=== PATIENT | male | born 1970 | race Caucasian/White ===

== ENCOUNTER 2019-01-03 15:29 | Inpatient (IN) | payer OTHER, MEDICAID ==
[~2019-01-03] VITALS: Ht 160 cm; Wt 92.1 kg
[2019-01-03] MEDS ORDERED: EPINEPHRINE SYRINGE 0.1 MG/ML, 10ML ONE (15:30)
[2019-01-03] MEDS ORDERED: SODIUM BICARB 8.4%, 50ML SYRINGE ONE ×2 (15:30→19:41)
[2019-01-03] MEDS ORDERED: ATROPINE SYRINGE 0.1 MG/ML, 10ML ONE (15:30)
[2019-01-03] MEDS ORDERED: PROPOFOL 10 MG/ML, 20ML ONE (15:32)
[2019-01-03] MEDS ORDERED: VECURONIUM 10 MG ONE (15:32)
[2019-01-03] MEDS ORDERED: ETOMIDATE 20 MG/10 ML ONE (15:32)
[2019-01-03] MEDS ORDERED: PROPOFOL 10 MG/ML, 100ML IV ONE (15:32)
[2019-01-03] MEDS ORDERED: SODIUM CHLORIDE FLUSH 10ML SYR IVF ONE (16:00)
[2019-01-03] MEDS ORDERED: SODIUM CHLORIDE 0.9% 1,000ML IVBOLUS ONE ×2 (16:00→19:30)
--- NOTE | 2019-01-03 16:00 | NUR ---
THIS IS A 48 YO MALE BIB [facility] FROM HOME WHERE PT WAS SEEN SITTING ON PORCH BY NEIGHBOR WHO THOUGHT PT "DIDN'T LOOK SO GOOD". PT HAS SLURRED, MUMBLED SPEECH. PT WILL ALTERNATE BETWEEN ANSWERING ALL QUESTIONS APPROPRIATELY AND NOT ANSWERING ANY QUESTIONS. PT RESTLESS AND AGITATED, LEANING OVER BED. PT STATES "I'M SO WEAK, I'M SO WEAK'. TONGUE DRY. PT DENIES ANY MEDICAL HX APART FROM [place] IN 2015. PT DENIES TAKING ANY MEDICATION. PT CYANOTIC FROM CLAVICLES TO STOP.
--- NOTE | 2019-01-03 16:00 | NUR ---
PT MOVED TO TR04. REPORT TO RAMON BRINK WHO ASSUMED CARE OF PT.
[2019-01-03 16:10] LABS: PH, VENOUS 7.203 pH (7.320-7.420)
[2019-01-03] MEDS ORDERED: PROPOFOL 0 ML IV ONE (16:10)
[2019-01-03 16:11] LABS: BASOPHILS # (AUTO) 0.03 x10^3/uL (0-0.1); BASOPHILS % (AUTO) 0 % (0-1); EOSINOPHILS # (AUTO) 0.02 x10^3/uL (0-0.4); EOSINOPHILS % (AUTO) 0 % (1-7); LYMPHOCYTES # (AUTO) 1.17 x10^3/uL (1-3.4); LYMPHOCYTES % (AUTO) 11 % (22-44); MD NO; MEAN CORPUSCULAR HEMOGLOBIN 28.4 pg (27.5-34.5); MEAN CORPUSCULAR HGB CONC 31.7 g/dL (33.2-36.2); MEAN CORPUSCULAR VOLUME 89.5 fL (81-97); MEAN PLATELET VOLUME 10.3 fL (7.4-10.4); MONOCYTES # (AUTO) 0.77 x10^3/uL (0.2-0.8); MONOCYTES % (AUTO) 7 % (2-9); NEUTROPHILS # (AUTO) 8.96 x10^3/uL (1.8-6.8); NEUTROPHILS % (AUTO) 82 % (42-75); PLATELET COUNT 112 x10^3/uL (130-400); RED BLOOD COUNT 6.32 x10^6/uL (4.38-5.82); RED CELL DISTRIBUTION WIDTH 16.6 % (9.4-14.8)
--- NOTE | 2019-01-03 16:11 | NUR ---
1555 PT WITH MUMBLED SPEECH, LIPS CYANOTIC, EXTREMITIES COOL. UNABLE TO PALPATE RADIAL PULSES. PT MOVED TO TR04. DR HERBERT AT BEDSIDE FOR INTUBATION. 1607 PT GIVEN 20MG ETOMIDATE, 1608 GIVEN 7MG VEVURONIUM. 1609 PT INTUBATED WITH 8.0 ETT 24 AT LIP. PLACEMENT WITH AUSCULTATION AND ET MONITORING. PT SB PER MONITOR. BP DECREASED 64/40. 1L NS FLUIDS INFUSING. 1617 16F OG PLACED. 1620 HR 55 57/20 16 99% ON AC 14 550 100% [address] CARRERO AT BEDSIDE AWARE OF V/S
[2019-01-03 16:19] LABS: INTERNATIONAL NORMALIZED RATIO 1.34 (0.93-1.1); PROTHROMBIN TIME 13.9 Seconds (9.6-11.5)
--- NOTE | 2019-01-03 16:23 | NUR ---
RECEIVED CALL FROM LAB, RONAN HEMOLYSED. POTASSIUM 7.7. DR CARRERO AWARE. LABS TO BE REDRAWN. 1621 1 AMP BICAB ADM PER V/O OF DR CARRERO.
[2019-01-03] MEDS ORDERED: SODIUM BICARBONATE 1 MEQ/ML, 50ML VIAL IVPush ONE (16:30)
[2019-01-03] MEDS ORDERED: ONDANSETRON 2MG/ML, 2ML IVPush PRN (16:30)
[2019-01-03] MEDS ORDERED: VASOPRESSIN 100 UNIT in SODIUM CHLORIDE 0.9% 495 ML IV PRN (16:30)
[2019-01-03] MEDS ORDERED: MIDAZOLAM HCL 50 MG in SODIUM CHLORIDE 0.9% 240 ML IV PRN (16:30)
[2019-01-03] MEDS ORDERED: HYDROCORTISONE 100 MG INJ. IVPush SCH (16:30)
[2019-01-03] MEDS ORDERED: HEPARIN 5,000 UNITS/ML, 1ML SQ SCH (16:30)
[2019-01-03] MEDS ORDERED: BISACODYL 10 MG SUPP PR PRN ×2 (16:30→19:30)
[2019-01-03] MEDS ORDERED: VANCOMYCIN PER PHARMACY MC PRN (16:30)
[2019-01-03] MEDS ORDERED: ALBUMIN HUMAN 25% 100 ML IV ONE (16:30)
[2019-01-03] MEDS ORDERED: LORazepam 2 MG/ML, 1ML IVPush PRN (16:30)
[2019-01-03] MEDS ORDERED: ETOMIDATE 40 MG/20 ML IVPush ONE (16:30)
[2019-01-03] MEDS ORDERED: VECURONIUM 10 MG IVPush ONE (16:30)
[2019-01-03] MEDS ORDERED: ACETAMINOPHEN 325 MG TABLET PO PRN (16:30)
[2019-01-03] MEDS ORDERED: OXYcodone IR 5MG TABLET PO PRN (16:30)
--- NOTE | 2019-01-03 16:31 | NUR ---
DR HERBERT AT BEDSIDE. PT HR DECREASED TO 40, BP 66/23. 2 L NS INFUSING.
--- NOTE | 2019-01-03 16:36 | NUR ---
PT WITH HR 39, 1/2 MG ATROPINE GIVEN, FAINT TO NON EXISTENT PULSE.
--- NOTE | 2019-01-03 16:37 | NUR ---
CODE BLUE INITIATED. SEE CPR DATA SHEET
[2019-01-03] MEDS ORDERED: CODE BLUE RESPONSE XX ONE (16:40)
--- NOTE | 2019-01-03 16:49 | NUR ---
DR HERBERT AT BEDSIDE PLACING CENTRAL LINE.
[2019-01-03] MEDS ORDERED: PIPERACILLIN/TAZO/PMX 3.375GM 50 ML IV SCH (17:00)
[2019-01-03] MEDS ORDERED: NOREPINEPHRINE 4 MG in SODIUM CHLORIDE 0.9% 246 ML IV PRN ×2 (17:00→19:16)
[2019-01-03 17:19] LABS: FREE T4 (FREE THYROXINE) 1.04 ng/dL (0.76-1.46)
[2019-01-03 17:23] LABS: ANION GAP 10 mmol/L (5-15); CALCIUM 6.5 mg/dL (8.5-10.1); CHLORIDE 114 mmol/L (98-107)
--- NOTE | 2019-01-03 17:27 | NUR ---
PT TO GO TO CT ON MONITOR WITH PORTABLE VENT WITH RN AND RN
[2019-01-03 17:28] LABS: ALANINE AMINOTRANSFERASE 49 U/L (12-78); ALKALINE PHOSPHATASE 61 U/L (45-117); BILIRUBIN,TOTAL 1.6 mg/dL (0.2-1.0); CREATININE 1.75 mg/dL (0.7-1.3); TOTAL PROTEIN 4.6 g/dL (6.4-8.2); TROPONIN I 0.031 ng/mL (0.000-0.045)
[2019-01-03 17:59] LABS: HEMOGLOBIN A1C 10.4 % (4.2-6.3)
--- NOTE | 2019-01-03 18:05 | NUR ---
PT RETURNED TO ROOM FROM CT Addendum: 01/03/19 at [address] CORINNA NOTED AFTER CT SCAN (PT LAYING FLAT) PT HEAD BECOMES OBRIEN/BLUE. BECOMES PALE AFTER TRANSFER TO [facility] AND SITTING UP
[2019-01-03] MEDS ORDERED: OMNIPAQUE 350 MG/ML, 100ML BOTTLE ONE (18:11)
--- NOTE | 2019-01-03 18:18 | NUR ---
REPORT CALLED TO PRATIBHA NAVARRO: POC DISCUSSED
[2019-01-03] MEDS ORDERED: ATROPINE 0.4 MG/ML, 1ML IVPush ONE (18:30)
[2019-01-03] MEDS ORDERED: PHARMACOKINETIC MONITORING MC PRN (19:00)
[2019-01-03] MEDS ORDERED: PHARMACOKINETIC CONSULTATION MC ONE (19:00)
[2019-01-03] MEDS ORDERED: FENTANYL PF 250 MCG in SODIUM CHLORIDE 0.9% 245 ML IV PRN (19:16)
[2019-01-03] MEDS ORDERED: SODIUM PHOSPHATE 20 MMOL in SODIUM CHLORIDE 0.9% 250 ML IVPB PRN (19:16)
[2019-01-03 19:28] LABS: ALANINE AMINOTRANSFERASE 194 U/L (12-78); ALBUMIN 2.6 g/dL (3.4-5.0); ANION GAP 8 mmol/L (5-15); CALCIUM 7.2 mg/dL (8.5-10.1); CHLORIDE 108 mmol/L (98-107); CREATININE 1.87 mg/dL (0.7-1.3)
[2019-01-03] MEDS ORDERED: FENTANYL PF 100 MCG/2ML IVPush PRN (19:30)
[2019-01-03] MEDS ORDERED: LORazepam 2 MG/ML, 1ML IV ONE (19:30)
[2019-01-03] MEDS ORDERED: SENNA 176 MG/5 ML ORAL SOL NG PRN (19:30)
[2019-01-03] MEDS: ARTIFICIAL TEARS OINT 3.5 GM EACHEYE SCH ×2 (19:30→21:39)
[2019-01-03] MEDS ORDERED: CALCIUM CHLORIDE 13.6 MEQ in DEXTROSE 5% 100 ML IVPB PRN (19:30)
[2019-01-03] MEDS ORDERED: PHARMACY MAY ADJ FOR RENAL FX MC SCH (19:30)
[2019-01-03] MEDS: KSCALE TO 4.0 IV SCH ×3 (19:30→21:43)
[2019-01-03] MEDS ORDERED: VECURONIUM 10 MG IVPush PRN (19:30)
[2019-01-03] MEDS: ALBUTEROL/IPRATROPIUM 2.5MG/0.5MG, 3 ML INLINE SCH ×2 (19:30→22:46)
[2019-01-03] MEDS ORDERED: SENNA/DOCUSATE TABLET NG PRN (19:30)
[2019-01-03] MEDS ORDERED: SODIUM CHLORIDE 0.9% 1,000ML IV SCH (19:30)
[2019-01-03] MEDS ORDERED: MAGNESIUM SULFATE 1 GM in SODIUM CHLORIDE 0.9% 50 ML IVPB PRN (19:30)
[2019-01-03] MEDS ORDERED: LIDOCAINE-MPF 1%, 2ML ENDO PRN (19:30)
[2019-01-03] MEDS ORDERED: LACTULOSE 20 GM/30 ML UDC NG PRN (19:30)
[2019-01-03 19:32] LABS: ALKALINE PHOSPHATASE 86 U/L (45-117); BILIRUBIN,TOTAL 3.9 mg/dL (0.2-1.0); TOTAL PROTEIN 5.7 g/dL (6.4-8.2)
[2019-01-03] MEDS ORDERED: INSULIN REGULAR 100 UNITS/ML, 3ML VIAL ONE (19:42)
[2019-01-03] MEDS: PIPERACILLIN/TAZO/PMX 3.375GM 50 ML IV SCH (19:56)
[2019-01-03] MEDS ORDERED: SODIUM BICARB 8.4%, 50ML SYRINGE IVPush ONE (20:00)
[2019-01-03] MEDS ORDERED: INSULIN REGULAR 100 UNITS/ML, 3ML VIAL IVPush ONE (20:00)
[2019-01-03] MEDS ORDERED: LORazepam 2 MG/ML, 1ML IVPush ONE (20:00)
[2019-01-03] MEDS ORDERED: DEXTROSE 50%, 50ML SYRINGE IVPush ONE (20:00)
[2019-01-03] MEDS: VANCOMYCIN 1,500 MG in SODIUM CHLORIDE 0.9% 250 ML IV SCH (20:08)
[2019-01-03] MEDS: BUSPIRONE 10 MG TABLET NG SCH ×2 (20:13→20:33)
[2019-01-03] MEDS: FAMOTIDINE 20 MG/2 ML IVPush SCH (20:13)
[2019-01-03] MEDS: HEPARIN 5,000 UNITS/ML, 1ML SQ SCH (20:13)
[2019-01-03] MEDS: SODIUM CHLORIDE 0.9% 1,000 ML IV SCH (20:16)
[2019-01-03] MEDS ORDERED: GLUCAGON 1 MG IM PRN (21:00)
[2019-01-03] MEDS ORDERED: FAMOTIDINE 20 MG/2 ML IVPush SCH (21:00)
[2019-01-03] MEDS ORDERED: DEXTROSE 50%, 50ML SYRINGE IVPush PRN (21:00)
[2019-01-03] MEDS ORDERED: INSULIN LISPRO 100 UNITS/ML, PEN SQ-INSULIN SCH (21:00)
[2019-01-03] MEDS ORDERED: DEXTROSE 4 GM TAB.CHEW PO PRN (21:00)
[2019-01-03] MEDS ORDERED: INSULIN GLARGINE 100 UNITS/ML, PEN SQ-INSULIN SCH (21:00)
[2019-01-03 21:18] LABS: MICROSCOPIC INDICATED
[2019-01-03 21:27] LABS: AMPHETAMINE SCREEN, URINE Negative (Negative); BARBITURATE SCREEN, URINE Negative (Negative); BENZODIAZEPINE SCREEN, URINE Negative (Negative); CANNABINOID SCREEN, URINE Negative (Negative); COCAINE SCREEN, URINE Negative (Negative); METHADONE SCREEN, URINE Negative (Negative); OPIATE SCREEN, URINE Negative (Negative)
[2019-01-03 21:28] LABS: CULTURE INDICATED? NO
[2019-01-03 21:30] LABS: TROPONIN I 0.713 ng/mL (0.000-0.045)
[2019-01-03] MEDS: SODIUM CHLORIDE FLUSH 10ML SYR IVF SCH (21:38)
[2019-01-03] MEDS: INSULIN LISPRO 100 UNITS/ML, PEN SQ-INSULIN SCH (21:38)
[2019-01-04] MEDS: ALBUTEROL/IPRATROPIUM 2.5MG/0.5MG, 3 ML INLINE SCH ×6 (03:02→22:18)
[2019-01-04] MEDS ORDERED: NOREPINEPHRINE 1 MG/ML, 4ML ONE (03:39)
[2019-01-04] MEDS: HEPARIN 5,000 UNITS/ML, 1ML SQ SCH ×3 (03:45→20:23)
[2019-01-04] MEDS: PIPERACILLIN/TAZO/PMX 3.375GM 50 ML IV SCH ×3 (03:45→20:23)
[2019-01-04] MEDS: SODIUM CHLORIDE 0.9% 1,000 ML IV SCH (04:00)
[2019-01-04] MEDS: PROPOFOL 100 ML IV PRN ×3 (04:08→18:34)
[2019-01-04] MEDS: INSULIN LISPRO 100 UNITS/ML, PEN SQ-INSULIN SCH ×4 (04:09→20:29)
[2019-01-04 04:17] LABS: BASOPHILS # (AUTO) 0.07 x10^3/uL (0-0.1); BASOPHILS % (AUTO) 1 % (0-1); EOSINOPHILS # (AUTO) 0.01 x10^3/uL (0-0.4); EOSINOPHILS % (AUTO) 0 % (1-7); LYMPHOCYTES # (AUTO) 1.38 x10^3/uL (1-3.4); LYMPHOCYTES % (AUTO) 10 % (22-44); MD NO; MEAN CORPUSCULAR VOLUME 90.7 fL (81-97); MEAN PLATELET VOLUME 10.2 fL (7.4-10.4); MONOCYTES # (AUTO) 1.23 x10^3/uL (0.2-0.8); MONOCYTES % (AUTO) 9 % (2-9); NEUTROPHILS # (AUTO) 11.59 x10^3/uL (1.8-6.8); NEUTROPHILS % (AUTO) 81 % (42-75); PLATELET COUNT 153 x10^3/uL (130-400); RED BLOOD COUNT 5.98 x10^6/uL (4.38-5.82); RED CELL DISTRIBUTION WIDTH 16.3 % (9.4-14.8)
[2019-01-04 04:19] VITALS: BP 88/63
[2019-01-04 04:27] LABS: ALANINE AMINOTRANSFERASE 162 U/L (12-78); ALBUMIN 2.7 g/dL (3.4-5.0); ANION GAP 7 mmol/L (5-15); CALCIUM 7.1 mg/dL (8.5-10.1); CHLORIDE 112 mmol/L (98-107)
[2019-01-04 04:32] LABS: ALKALINE PHOSPHATASE 68 U/L (45-117); BILIRUBIN,TOTAL 1.7 mg/dL (0.2-1.0); CREATININE 1.96 mg/dL (0.7-1.3); TOTAL PROTEIN 5.6 g/dL (6.4-8.2)
[2019-01-04] MEDS ORDERED: MAGNESIUM SULFATE 1 GM in SODIUM CHLORIDE 0.9% 50 ML IV ONE (05:00)
[2019-01-04] MEDS: SODIUM BICARBONATE 8.4% 150 MEQ in DEXTROSE 5% 1,000 ML IV SCH ×3 (05:12→21:06)
[2019-01-04] MEDS ORDERED: NOREPINEPHRINE 8 MG in SODIUM CHLORIDE 0.9% 242 ML IV PRN (06:16)
[2019-01-04] MEDS ORDERED: MAGNESIUM SULFATE PMX 2GM/50ML 50 ML IV ONE (07:00)
[2019-01-04] MEDS: FAMOTIDINE 20 MG/2 ML IVPush SCH (08:27)
[2019-01-04] MEDS: SENNA/DOCUSATE TABLET PO SCH (08:27)
[2019-01-04] MEDS: SODIUM CHLORIDE FLUSH 10ML SYR IVF SCH ×2 (08:28→20:24)
[2019-01-04] MEDS: INSULIN GLARGINE 100 UNITS/ML, PEN SQ-INSULIN SCH ×3 (08:29→20:28)
[2019-01-04] MEDS ORDERED: MIDAZOLAM HCL 50 MG in SODIUM CHLORIDE 0.9% 240 ML IV PRN (09:30)
[2019-01-04] MEDS: LEVETIRACETAM 500 MG in SODIUM CHLORIDE 0.9% 100 ML IV SCH (15:28)
[2019-01-04 16:35] LABS: ANION GAP 6 mmol/L (5-15); CALCIUM 7.4 mg/dL (8.5-10.1); CHLORIDE 107 mmol/L (98-107); CREATININE 1.52 mg/dL (0.7-1.3)
[2019-01-04] MEDS ORDERED: POTASSIUM CHLORIDE 10% 40 MEQ/30 ML UDC PO ONE (17:00)
[2019-01-04] MEDS: VANCOMYCIN 1,500 MG in SODIUM CHLORIDE 0.9% 250 ML IV SCH (18:34)
[2019-01-04] MEDS: DOPAMINE/D5W PMX 250 ML IV PRN (20:49)
[2019-01-05] MEDS: PROPOFOL 100 ML IV PRN ×2 (00:30→05:52)
[2019-01-05] MEDS: morphine SULFATE 10 MG/ML, 1ML IVPush PRN (01:50)
[2019-01-05] MEDS: ALBUTEROL/IPRATROPIUM 2.5MG/0.5MG, 3 ML INLINE SCH ×3 (02:12→10:54)
[2019-01-05] MEDS: LEVETIRACETAM 500 MG in SODIUM CHLORIDE 0.9% 100 ML IV SCH ×2 (03:02→15:10)
[2019-01-05] MEDS: PIPERACILLIN/TAZO/PMX 3.375GM 50 ML IV SCH ×3 (03:23→19:59)
[2019-01-05 04:00] VITALS: BP 113/76
[2019-01-05] MEDS: HEPARIN 5,000 UNITS/ML, 1ML SQ SCH ×3 (04:02→20:00)
[2019-01-05] MEDS: SODIUM BICARBONATE 8.4% 150 MEQ in DEXTROSE 5% 1,000 ML IV SCH (04:02)
[2019-01-05] MEDS: INSULIN LISPRO 100 UNITS/ML, PEN SQ-INSULIN SCH ×4 (04:09→20:37)
[2019-01-05 04:19] LABS: BASOPHILS # (AUTO) 0.05 x10^3/uL (0-0.1); BASOPHILS % (AUTO) 0 % (0-1); EOSINOPHILS % (AUTO) 1 % (1-7); LYMPHOCYTES # (AUTO) 1.38 x10^3/uL (1-3.4); LYMPHOCYTES % (AUTO) 11 % (22-44); MD NO; MEAN CORPUSCULAR HEMOGLOBIN 28.9 pg (27.5-34.5); MEAN CORPUSCULAR HGB CONC 31.9 g/dL (33.2-36.2); MEAN CORPUSCULAR VOLUME 90.4 fL (81-97); MEAN PLATELET VOLUME 8.9 fL (7.4-10.4); MONOCYTES # (AUTO) 0.69 x10^3/uL (0.2-0.8); MONOCYTES % (AUTO) 5 % (2-9); NEUTROPHILS # (AUTO) 10.49 x10^3/uL (1.8-6.8); NEUTROPHILS % (AUTO) 83 % (42-75); PLATELET COUNT 143 x10^3/uL (130-400); RED BLOOD COUNT 5.54 x10^6/uL (4.38-5.82); RED CELL DISTRIBUTION WIDTH 16.5 % (9.4-14.8)
[2019-01-05 04:29] LABS: ANION GAP 4 mmol/L (5-15); CALCIUM 6.9 mg/dL (8.5-10.1); CHLORIDE 106 mmol/L (98-107); CREATININE 1.19 mg/dL (0.7-1.3)
[2019-01-05] MEDS ORDERED: FAMOTIDINE 20 MG/2 ML IVPush SCH ×2 (09:00→21:00)
[2019-01-05] MEDS: SODIUM CHLORIDE FLUSH 10ML SYR IVF SCH ×2 (09:09→19:59)
[2019-01-05] MEDS: SENNA/DOCUSATE TABLET PO SCH (09:09)
[2019-01-05] MEDS: ASPIRIN 81 MG TABLET CHEW PO SCH (09:09)
[2019-01-05] MEDS: INSULIN GLARGINE 100 UNITS/ML, PEN SQ-INSULIN SCH ×2 (09:10→20:56)
--- NOTE | 2019-01-05 09:44 | NUR ---
TF GOAL: w/ propofol: PROMOTE @ 60ml/hr off propofol: 70ml/hr
[2019-01-05] MEDS ORDERED: POTASSIUM CHLORIDE PMX 100 ML IV ONE (11:30)
[2019-01-05] MEDS ORDERED: FUROSEMIDE 20 MG/2 ML IV ONE (11:30)
[2019-01-05] MEDS: VANCOMYCIN 1,500 MG in SODIUM CHLORIDE 0.9% 250 ML IV SCH (20:34)
[2019-01-06] MEDS: DOPAMINE/D5W PMX 250 ML IV PRN (00:22)
[2019-01-06] MEDS: INSULIN LISPRO 100 UNITS/ML, PEN SQ-INSULIN SCH ×5 (03:25→20:47)
[2019-01-06] MEDS: LEVETIRACETAM 500 MG in SODIUM CHLORIDE 0.9% 100 ML IV SCH ×2 (03:27→14:52)
[2019-01-06] MEDS: PIPERACILLIN/TAZO/PMX 3.375GM 50 ML IV SCH (03:27)
[2019-01-06 04:00] VITALS: BP 100/64
[2019-01-06] MEDS: HEPARIN 5,000 UNITS/ML, 1ML SQ SCH ×3 (04:13→20:00)
[2019-01-06 05:20] LABS: BASOPHILS # (AUTO) 0.02 x10^3/uL (0-0.1); BASOPHILS % (AUTO) 0 % (0-1); EOSINOPHILS # (AUTO) 0.05 x10^3/uL (0-0.4); EOSINOPHILS % (AUTO) 1 % (1-7); LYMPHOCYTES # (AUTO) 0.93 x10^3/uL (1-3.4); LYMPHOCYTES % (AUTO) 10 % (22-44); MD NO; MEAN CORPUSCULAR HEMOGLOBIN 28.9 pg (27.5-34.5); MEAN CORPUSCULAR HGB CONC 31.8 g/dL (33.2-36.2); MEAN PLATELET VOLUME 9.2 fL (7.4-10.4); MONOCYTES # (AUTO) 0.56 x10^3/uL (0.2-0.8); MONOCYTES % (AUTO) 6 % (2-9); NEUTROPHILS # (AUTO) 7.48 x10^3/uL (1.8-6.8); NEUTROPHILS % (AUTO) 83 % (42-75); PLATELET COUNT 117 x10^3/uL (130-400); RED BLOOD COUNT 5.42 x10^6/uL (4.38-5.82); RED CELL DISTRIBUTION WIDTH 16.4 % (9.4-14.8)
[2019-01-06 05:30] LABS: ALBUMIN 2.4 g/dL (3.4-5.0); ANION GAP 7 mmol/L (5-15); CALCIUM 7.7 mg/dL (8.5-10.1); CHLORIDE 103 mmol/L (98-107)
[2019-01-06 05:35] LABS: ALANINE AMINOTRANSFERASE 265 U/L (12-78); ALKALINE PHOSPHATASE 83 U/L (45-117); BILIRUBIN, DIRECT 1.9 mg/dL (0.1-0.2); BILIRUBIN,INDIRECT 1.2 mg/dL (0.0-2.0); BILIRUBIN,TOTAL 3.1 mg/dL (0.2-1.0); CREATININE 0.96 mg/dL (0.7-1.3); TOTAL PROTEIN 5.6 g/dL (6.4-8.2)
[2019-01-06] MEDS ORDERED: POTASSIUM CHLORIDE 20 MEQ TAB.ER.PRT PO ONE (07:30)
[2019-01-06] MEDS ORDERED: CALCIUM CARBONATE 500 MG TAB.CHEW PO SCH (07:30)
[2019-01-06] MEDS ORDERED: CALCIUM CHLORIDE 13.6 MEQ in SODIUM CHLORIDE 0.9% 100 ML IV ONE (07:30)
[2019-01-06] MEDS ORDERED: MAGNESIUM SULFATE PMX 2GM/50ML 50 ML IV ONE (07:30)
[2019-01-06] MEDS: SENNA/DOCUSATE TABLET PO SCH (10:07)
[2019-01-06] MEDS: SODIUM CHLORIDE FLUSH 10ML SYR IVF SCH ×2 (10:07→20:07)
[2019-01-06] MEDS: ASPIRIN 81 MG TABLET CHEW PO SCH (10:07)
[2019-01-06] MEDS: CALCIUM CARBONATE 500 MG TAB.CHEW PO SCH ×3 (11:13→20:46)
[2019-01-06 13:07] VITALS: BP 100/69
[2019-01-06] MEDS: CEFTRIAXONE PMX 2GM/50ML 50 ML IV SCH (15:53)
[2019-01-06 18:51] VITALS: BP 104/75
[2019-01-07] VITALS (7 sets, daily range): BP systolic 105–127; BP diastolic 76–91
[2019-01-07] MEDS: HEPARIN 5,000 UNITS/ML, 1ML SQ SCH ×3 (03:24→19:44)
[2019-01-07] MEDS: LEVETIRACETAM 500 MG in SODIUM CHLORIDE 0.9% 100 ML IV SCH ×2 (03:24→20:23)
[2019-01-07] MEDS: CALCIUM CARBONATE 500 MG TAB.CHEW PO SCH ×2 (06:00→11:00)
[2019-01-07] MEDS: INSULIN LISPRO 100 UNITS/ML, PEN SQ-INSULIN SCH ×4 (07:00→20:23)
[2019-01-07] MEDS: SODIUM CHLORIDE FLUSH 10ML SYR IVF SCH ×2 (09:00→19:46)
[2019-01-07] MEDS: ASPIRIN 81 MG TABLET CHEW PO SCH (09:00)
[2019-01-07] MEDS: SENNA/DOCUSATE TABLET PO SCH (09:00)
[2019-01-07] MEDS ORDERED: VANCOMYCIN PER PHARMACY MC PRN (09:30)
[2019-01-07] MEDS ORDERED: VANCOMYCIN PMX 1GM/200ML 200 ML IV ONE (09:30)
[2019-01-07] MEDS: VANCOMYCIN 1,800 MG in SODIUM CHLORIDE 0.9% 250 ML IV SCH (11:33)
[2019-01-07] MEDS ORDERED: REGADENOSON 0.4 MG/5 ML SYRINGE ONE (12:55)
[2019-01-07] MEDS: CEFTRIAXONE PMX 2GM/50ML 50 ML IV SCH (15:36)
[2019-01-07] MEDS ORDERED: GADOTERATE 10 MMOL/20 ML SYR ONE (17:44)
[2019-01-08 00:40] VITALS: BP 115/78
[2019-01-08] MEDS: HEPARIN 5,000 UNITS/ML, 1ML SQ SCH ×3 (03:02→20:00)
[2019-01-08] MEDS: INSULIN LISPRO 100 UNITS/ML, PEN SQ-INSULIN SCH ×4 (07:00→20:54)
[2019-01-08 07:59] VITALS: BP 134/84
[2019-01-08] MEDS: SODIUM CHLORIDE FLUSH 10ML SYR IVF SCH ×2 (09:00→20:02)
[2019-01-08] MEDS: SENNA/DOCUSATE TABLET PO SCH (09:19)
[2019-01-08] MEDS: LEVETIRACETAM 500 MG in SODIUM CHLORIDE 0.9% 100 ML IV SCH ×2 (09:19→20:58)
[2019-01-08] MEDS: ASPIRIN 81 MG TABLET CHEW PO SCH (09:19)
[2019-01-08 09:52] LABS: BASOPHILS # (AUTO) 0.06 x10^3/uL (0-0.1); BASOPHILS % (AUTO) 1 % (0-1); EOSINOPHILS # (AUTO) 0.17 x10^3/uL (0-0.4); EOSINOPHILS % (AUTO) 2 % (1-7); LYMPHOCYTES # (AUTO) 1.55 x10^3/uL (1-3.4); LYMPHOCYTES % (AUTO) 18 % (22-44); MD NO; MEAN CORPUSCULAR HEMOGLOBIN 28.7 pg (27.5-34.5); MEAN CORPUSCULAR HGB CONC 32.5 g/dL (33.2-36.2); MEAN CORPUSCULAR VOLUME 88.3 fL (81-97); MEAN PLATELET VOLUME 9.6 fL (7.4-10.4); MONOCYTES # (AUTO) 1.11 x10^3/uL (0.2-0.8); MONOCYTES % (AUTO) 13 % (2-9); NEUTROPHILS # (AUTO) 5.81 x10^3/uL (1.8-6.8); NEUTROPHILS % (AUTO) 67 % (42-75); PLATELET COUNT 137 x10^3/uL (130-400); RED BLOOD COUNT 5.78 x10^6/uL (4.38-5.82); RED CELL DISTRIBUTION WIDTH 16.6 % (9.4-14.8)
[2019-01-08 10:06] LABS: ALANINE AMINOTRANSFERASE 175 U/L (12-78); ALBUMIN 2.7 g/dL (3.4-5.0); ANION GAP 6 mmol/L (5-15); CALCIUM 8.3 mg/dL (8.5-10.1); CHLORIDE 106 mmol/L (98-107); CREATININE 0.88 mg/dL (0.7-1.3)
[2019-01-08 10:10] LABS: ALKALINE PHOSPHATASE 131 U/L (45-117); BILIRUBIN,TOTAL 1.3 mg/dL (0.2-1.0); TOTAL PROTEIN 6.4 g/dL (6.4-8.2)
[2019-01-08] MEDS: VANCOMYCIN 1,800 MG in SODIUM CHLORIDE 0.9% 250 ML IV SCH (11:43)
[2019-01-08 14:02] VITALS: BP 131/96
[2019-01-08] MEDS ORDERED: ERGOCALCIFEROL 50,000 UNIT CAPSULE PO SCH (14:30)
[2019-01-08] MEDS: CEFTRIAXONE PMX 2GM/50ML 50 ML IV SCH (15:52)
[2019-01-08] MEDS: SIMETHICONE 125 MG CHEW TAB PO PRN (18:28)
[2019-01-08 19:01] VITALS: BP 138/98
[2019-01-08] MEDS: POLYETHYLENE GLYCOL 17 GM PACKET PO PRN (21:21)
[2019-01-09 00:12] VITALS: BP 122/89
[2019-01-09] MEDS: HEPARIN 5,000 UNITS/ML, 1ML SQ SCH ×3 (03:32→20:02)
[2019-01-09] MEDS: METOPROLOL SUCCINATE 25 MG TAB.ER.24H PO SCH (05:53)
[2019-01-09] MEDS: INSULIN LISPRO 100 UNITS/ML, PEN SQ-INSULIN SCH ×4 (07:40→20:06)
[2019-01-09 07:44] VITALS: BP 138/94
[2019-01-09] MEDS: LEVETIRACETAM 500 MG in SODIUM CHLORIDE 0.9% 100 ML IV SCH ×2 (08:08→20:02)
[2019-01-09] MEDS: LOSARTAN 25MG TABLET PO SCH (08:09)
[2019-01-09] MEDS: SODIUM CHLORIDE FLUSH 10ML SYR IVF SCH ×2 (08:09→21:39)
[2019-01-09] MEDS: SENNA/DOCUSATE TABLET PO SCH (08:09)
[2019-01-09] MEDS: ASPIRIN 81 MG TABLET CHEW PO SCH (08:09)
[2019-01-09] MEDS: VANCOMYCIN 1,800 MG in SODIUM CHLORIDE 0.9% 250 ML IV SCH (11:31)
[2019-01-09 13:49] VITALS: BP 123/70
[2019-01-09 14:47] VITALS: BP 124/88
[2019-01-09] MEDS: SIMETHICONE 125 MG CHEW TAB PO PRN (15:24)
[2019-01-09] MEDS: POLYETHYLENE GLYCOL 17 GM PACKET PO PRN (17:28)
[2019-01-09] MEDS: CEFTRIAXONE PMX 2GM/50ML 50 ML IV SCH (19:31)
[2019-01-09 19:41] VITALS: BP 136/99
[2019-01-10 04:07] VITALS: BP 145/93
[2019-01-10] MEDS: HEPARIN 5,000 UNITS/ML, 1ML SQ SCH ×2 (04:07→11:51)
[2019-01-10 05:46] LABS: BASOPHILS # (AUTO) 0.14 x10^3/uL (0-0.1); BASOPHILS % (AUTO) 1 % (0-1); EOSINOPHILS # (AUTO) 0.08 x10^3/uL (0-0.4); EOSINOPHILS % (AUTO) 1 % (1-7); LYMPHOCYTES # (AUTO) 1.18 x10^3/uL (1-3.4); LYMPHOCYTES % (AUTO) 12 % (22-44); MD NO; MEAN CORPUSCULAR HEMOGLOBIN 28.1 pg (27.5-34.5); MEAN CORPUSCULAR HGB CONC 31.7 g/dL (33.2-36.2); MEAN CORPUSCULAR VOLUME 88.8 fL (81-97); MEAN PLATELET VOLUME 9.6 fL (7.4-10.4); MONOCYTES % (AUTO) 11 % (2-9); NEUTROPHILS # (AUTO) 7.17 x10^3/uL (1.8-6.8); NEUTROPHILS % (AUTO) 75 % (42-75); PLATELET COUNT 150 x10^3/uL (130-400); RED BLOOD COUNT 6.18 x10^6/uL (4.38-5.82)
[2019-01-10 05:55] LABS: CHLORIDE 105 mmol/L (98-107)
[2019-01-10 06:05] LABS: ALANINE AMINOTRANSFERASE 135 U/L (12-78); ALBUMIN 3.1 g/dL (3.4-5.0); ALKALINE PHOSPHATASE 139 U/L (45-117); ANION GAP 9 mmol/L (5-15); BILIRUBIN,TOTAL 1.2 mg/dL (0.2-1.0); CALCIUM 8.6 mg/dL (8.5-10.1); CREATININE 0.91 mg/dL (0.7-1.3); TOTAL PROTEIN 7.4 g/dL (6.4-8.2)
[2019-01-10] MEDS: METOPROLOL SUCCINATE 25 MG TAB.ER.24H PO SCH (06:38)
[2019-01-10] MEDS: INSULIN LISPRO 100 UNITS/ML, PEN SQ-INSULIN SCH ×4 (07:00→20:20)
[2019-01-10] MEDS: LOSARTAN 25MG TABLET PO SCH (07:47)
[2019-01-10] MEDS: SENNA/DOCUSATE TABLET PO SCH (07:47)
[2019-01-10] MEDS: ASPIRIN 81 MG TABLET CHEW PO SCH (07:47)
[2019-01-10] MEDS: SODIUM CHLORIDE FLUSH 10ML SYR IVF SCH ×2 (07:47→20:14)
[2019-01-10] MEDS: LEVETIRACETAM 500 MG in SODIUM CHLORIDE 0.9% 100 ML IV SCH (07:47)
[2019-01-10 09:58] VITALS: BP 123/93
[2019-01-10 15:59] VITALS: BP 129/90
[2019-01-10] MEDS: SIMETHICONE 125 MG CHEW TAB PO PRN (16:27)
[2019-01-10] MEDS: LACTOBACILLUS CHEW TABLET PO SCH ×2 (16:27→20:55)
[2019-01-10 19:33] VITALS: BP 132/80
[2019-01-10] MEDS: CEFTRIAXONE PMX 2GM/50ML 50 ML IV SCH (19:43)
[2019-01-10] MEDS: ENOXAPARIN 40 MG/0.4 ML SQ SCH (20:15)
[2019-01-10] MEDS: LEVETIRACETAM 500 MG TABLET PO SCH (20:55)
[2019-01-10 20:56] VITALS: BP 143/99
[2019-01-11 03:49] VITALS: BP 144/105
[2019-01-11 04:00] LABS: BASOPHILS # (AUTO) 0.05 x10^3/uL (0-0.1); BASOPHILS % (AUTO) 1 % (0-1); EOSINOPHILS # (AUTO) 0.11 x10^3/uL (0-0.4); EOSINOPHILS % (AUTO) 1 % (1-7); LYMPHOCYTES # (AUTO) 1.46 x10^3/uL (1-3.4); LYMPHOCYTES % (AUTO) 17 % (22-44); MD NO; MEAN CORPUSCULAR HEMOGLOBIN 28.6 pg (27.5-34.5); MEAN CORPUSCULAR VOLUME 89.3 fL (81-97); MEAN PLATELET VOLUME 9.9 fL (7.4-10.4); MONOCYTES # (AUTO) 0.99 x10^3/uL (0.2-0.8); MONOCYTES % (AUTO) 12 % (2-9); NEUTROPHILS # (AUTO) 5.98 x10^3/uL (1.8-6.8); NEUTROPHILS % (AUTO) 70 % (42-75); PLATELET COUNT 172 x10^3/uL (130-400); RED BLOOD COUNT 5.88 x10^6/uL (4.38-5.82); RED CELL DISTRIBUTION WIDTH 16.6 % (9.4-14.8)
[2019-01-11 04:04] LABS: % IRON SATURATION 14 % (20-55); ALANINE AMINOTRANSFERASE 104 U/L (12-78); ALBUMIN 2.9 g/dL (3.4-5.0); ANION GAP 7 mmol/L (5-15); CALCIUM 8.5 mg/dL (8.5-10.1); CHLORIDE 106 mmol/L (98-107); CREATININE 0.96 mg/dL (0.7-1.3); IRON LEVEL 44 mcg/dL (65-175); TOTAL IRON BINDING CAPACITY 307 mcg/dL (250-450)
[2019-01-11 04:07] LABS: ALKALINE PHOSPHATASE 120 U/L (45-117); BILIRUBIN,TOTAL 1.1 mg/dL (0.2-1.0); CREATINE KINASE, TOTAL 106 U/L (39-308); TOTAL PROTEIN 6.8 g/dL (6.4-8.2)
[2019-01-11] MEDS: METOPROLOL SUCCINATE 25 MG TAB.ER.24H PO SCH (06:11)
[2019-01-11 06:42] VITALS: BP 134/90
[2019-01-11] MEDS: ASPIRIN 81 MG TABLET CHEW PO SCH (07:58)
[2019-01-11] MEDS: LOSARTAN 25MG TABLET PO SCH (07:58)
[2019-01-11] MEDS: INSULIN LISPRO 100 UNITS/ML, PEN SQ-INSULIN SCH ×4 (07:58→20:28)
[2019-01-11] MEDS: SENNA/DOCUSATE TABLET PO SCH (07:58)
[2019-01-11] MEDS: LEVETIRACETAM 500 MG TABLET PO SCH ×2 (07:58→20:28)
[2019-01-11] MEDS: LACTOBACILLUS CHEW TABLET PO SCH ×3 (07:58→20:28)
[2019-01-11] MEDS: SODIUM CHLORIDE FLUSH 10ML SYR IVF SCH ×2 (07:59→20:28)
[2019-01-11] MEDS ORDERED: ENOX40SY4 SQ (09:31)
[2019-01-11] MEDS ORDERED: ASPI-515 PO (09:31)
[2019-01-11] MEDS ORDERED: INSU100I11 SQ-INSULIN (09:31)
[2019-01-11] MEDS ORDERED: ERGO500017 PO (09:31)
[2019-01-11] MEDS ORDERED: BISA10SU4 PR ×2 (09:31)
[2019-01-11] MEDS ORDERED: CEFT2FRO2 IV (09:31)
[2019-01-11] MEDS ORDERED: LACT20SO13 NG (09:31)
[2019-01-11] MEDS ORDERED: POLY17PO5 PO (09:31)
[2019-01-11] MEDS ORDERED: SENN-193 PO (09:31)
[2019-01-11] MEDS ORDERED: ACET325T26 PO (09:31)
[2019-01-11] MEDS ORDERED: ACID1TAB7 PO (09:31)
[2019-01-11] MEDS ORDERED: METO25TA91 PO (09:31)
[2019-01-11] MEDS ORDERED: LOSA25TA25 PO (09:31)
[2019-01-11] MEDS ORDERED: LEVE500T53 PO (09:31)
[2019-01-11] MEDS ORDERED: CLOP75TA PO (09:47)
[2019-01-11 12:36] VITALS: BP 139/94
[2019-01-11 19:00] VITALS: BP 123/87
[2019-01-11] MEDS: CEFTRIAXONE PMX 2GM/50ML 50 ML IV SCH (20:27)
[2019-01-11] MEDS: ENOXAPARIN 40 MG/0.4 ML SQ SCH (20:28)
[2019-01-12 03:59] VITALS: BP 127/93
[2019-01-12] MEDS: METOPROLOL SUCCINATE 25 MG TAB.ER.24H PO SCH (06:10)
[2019-01-12] MEDS ORDERED: FLU VACC QS2019-20 36MOS UP/PF 0.5 ML IM-VACC ONE (06:30)
[2019-01-12] MEDS: INSULIN LISPRO 100 UNITS/ML, PEN SQ-INSULIN SCH ×4 (07:00→21:00)
[2019-01-12 07:15] VITALS: BP 131/90
[2019-01-12] MEDS: CLOPIDOGREL 75 MG TABLET PO SCH (07:58)
[2019-01-12] MEDS: LOSARTAN 25MG TABLET PO SCH (07:58)
[2019-01-12] MEDS: SENNA/DOCUSATE TABLET PO SCH (07:59)
[2019-01-12] MEDS: ASPIRIN 81 MG TABLET CHEW PO SCH (07:59)
[2019-01-12] MEDS: LACTOBACILLUS CHEW TABLET PO SCH ×3 (07:59→21:25)
[2019-01-12] MEDS: LEVETIRACETAM 500 MG TABLET PO SCH ×2 (07:59→21:25)
[2019-01-12] MEDS: SODIUM CHLORIDE FLUSH 10ML SYR IVF SCH ×2 (08:00→21:00)
[2019-01-12 13:08] VITALS: BP 125/81
[2019-01-12 19:09] VITALS: BP 133/83
[2019-01-12] MEDS: ENOXAPARIN 40 MG/0.4 ML SQ SCH (19:47)
[2019-01-12] MEDS: CEFTRIAXONE PMX 2GM/50ML 50 ML IV SCH (19:47)
[2019-01-13 00:29] VITALS: BP 100/76
[2019-01-13 05:36] VITALS: BP 129/91
[2019-01-13] MEDS: METOPROLOL SUCCINATE 25 MG TAB.ER.24H PO SCH (05:36)
[2019-01-13] MEDS: INSULIN LISPRO 100 UNITS/ML, PEN SQ-INSULIN SCH ×4 (07:00→20:06)
[2019-01-13 07:49] VITALS: BP 152/94
[2019-01-13] MEDS: CLOPIDOGREL 75 MG TABLET PO SCH (11:45)
[2019-01-13] MEDS: LACTOBACILLUS CHEW TABLET PO SCH ×3 (11:45→20:02)
[2019-01-13] MEDS: ASPIRIN 81 MG TABLET CHEW PO SCH (11:45)
[2019-01-13] MEDS: SODIUM CHLORIDE FLUSH 10ML SYR IVF SCH ×2 (11:46→19:34)
[2019-01-13] MEDS: SENNA/DOCUSATE TABLET PO SCH (11:46)
[2019-01-13] MEDS: LEVETIRACETAM 500 MG TABLET PO SCH ×2 (11:46→20:02)
[2019-01-13] MEDS: LOSARTAN 25MG TABLET PO SCH (12:23)
[2019-01-13 13:19] VITALS: BP 136/99
[2019-01-13 19:26] VITALS: BP 131/92
[2019-01-13] MEDS: ENOXAPARIN 40 MG/0.4 ML SQ SCH (19:34)
[2019-01-13] MEDS: CEFTRIAXONE PMX 2GM/50ML 50 ML IV SCH (19:34)
[2019-01-14 01:05] VITALS: BP 115/80
[2019-01-14] MEDS: METOPROLOL SUCCINATE 25 MG TAB.ER.24H PO SCH (05:32)
[2019-01-14] MEDS: INSULIN LISPRO 100 UNITS/ML, PEN SQ-INSULIN SCH ×3 (07:00→16:00)
[2019-01-14 07:24] VITALS: BP 151/94
[2019-01-14 08:21] LABS: BASOPHILS # (AUTO) 0.05 x10^3/uL (0-0.1); BASOPHILS % (AUTO) 1 % (0-1); EOSINOPHILS % (AUTO) 1 % (1-7); LYMPHOCYTES # (AUTO) 1.18 x10^3/uL (1-3.4); LYMPHOCYTES % (AUTO) 16 % (22-44); MD NO; MEAN CORPUSCULAR HEMOGLOBIN 28.4 pg (27.5-34.5); MEAN CORPUSCULAR VOLUME 88.7 fL (81-97); MEAN PLATELET VOLUME 9.6 fL (7.4-10.4); MONOCYTES % (AUTO) 11 % (2-9); NEUTROPHILS # (AUTO) 5.25 x10^3/uL (1.8-6.8); NEUTROPHILS % (AUTO) 71 % (42-75); PLATELET COUNT 185 x10^3/uL (130-400); RED CELL DISTRIBUTION WIDTH 16.8 % (9.4-14.8)
[2019-01-14 08:35] LABS: ANION GAP 9 mmol/L (5-15); CALCIUM 8.5 mg/dL (8.5-10.1); CHLORIDE 107 mmol/L (98-107)
[2019-01-14 08:40] LABS: ALANINE AMINOTRANSFERASE 63 U/L (12-78); ALKALINE PHOSPHATASE 120 U/L (45-117); BILIRUBIN,TOTAL 1.1 mg/dL (0.2-1.0); CREATININE 0.85 mg/dL (0.7-1.3); TOTAL PROTEIN 7.4 g/dL (6.4-8.2)
[2019-01-14] MEDS: CLOPIDOGREL 75 MG TABLET PO SCH (08:46)
[2019-01-14] MEDS: SENNA/DOCUSATE TABLET PO SCH (08:46)
[2019-01-14] MEDS: LACTOBACILLUS CHEW TABLET PO SCH ×2 (08:46→16:00)
[2019-01-14] MEDS: ASPIRIN 81 MG TABLET CHEW PO SCH (08:47)
[2019-01-14] MEDS: LEVETIRACETAM 500 MG TABLET PO SCH (08:47)
[2019-01-14] MEDS: LOSARTAN 25MG TABLET PO SCH (08:48)
[2019-01-14] MEDS: SODIUM CHLORIDE FLUSH 10ML SYR IVF SCH (08:49)
[2019-01-14 12:32] VITALS: BP 152/98
[2019-01-14] MEDS ORDERED: INSU100V8 SQ (14:20)
[2019-01-14] MEDS ORDERED: METF500T PO (14:21)
== END 2019-01-14 18:53 | DRG 871 ==
LOC: ED 16:38 → CCU 18:42 → ED 19:49 → CCU 19:50 → 3N 01-06 12:00
PROVIDERS: ADMIT Internal Medicine; ATTEND Hospitalist
PROC: 0BH17EZ Insertion of Endotracheal Airway into Trachea, Via Natural or Artificial Opening (ICD-10-PCS; principal; 2019-01-03)
PROC: 5A1945Z Respiratory Ventilation, 24-96 Consecutive Hours (ICD-10-PCS; 2019-01-03)
PROC: 0T9B70Z Drainage of Bladder with Drainage Device, Via Natural or Artificial Opening (ICD-10-PCS; 2019-01-03)
PROC: 02HV33Z Insertion of Infusion Device into Superior Vena Cava, Percutaneous Approach (ICD-10-PCS; 2019-01-03)
PROC: B548ZZA Ultrasonography of Superior Vena Cava, Guidance (ICD-10-PCS; 2019-01-03)
PROC: B548ZZA Ultrasonography of Superior Vena Cava, Guidance (ICD-10-PCS; 2019-01-10)
PROC: 02HV33Z Insertion of Infusion Device into Superior Vena Cava, Percutaneous Approach (ICD-10-PCS; 2019-01-10)
PROC: B5181ZA Fluoroscopy of Superior Vena Cava using Low Osmolar Contrast, Guidance (ICD-10-PCS; 2019-01-10)
DX: A40.8 Other streptococcal sepsis (principal); E11.00 Type 2 diabetes mellitus with hyperosmolarity without nonketotic hyperglycemic-hyperosmolar coma (NKHHC); J96.01 Acute respiratory failure with hypoxia; G93.41 Metabolic encephalopathy; N17.0 Acute kidney failure with tubular necrosis; I46.9 Cardiac arrest, cause unspecified; J15.3 Pneumonia due to streptococcus, group B; I21.4 Non-ST elevation (NSTEMI) myocardial infarction; D68.9 Coagulation defect, unspecified; J98.11 Atelectasis; Z99.11 Dependence on respirator [ventilator] status; D69.6 Thrombocytopenia, unspecified; E83.51 Hypocalcemia; G31.84 Mild cognitive impairment of uncertain or unknown etiology; G40.909 Epilepsy, unspecified, not intractable, without status epilepticus; I08.1 Rheumatic disorders of both mitral and tricuspid valves; I25.10 Atherosclerotic heart disease of native coronary artery without angina pectoris; I25.2 Old myocardial infarction; I25.5 Ischemic cardiomyopathy; I27.20 Pulmonary hypertension, unspecified; K40.90 Unilateral inguinal hernia, without obstruction or gangrene, not specified as recurrent; Z51.5 Encounter for palliative care; Z59.0 Homelessness; Z79.4 Long term (current) use of insulin; Z95.5 Presence of coronary angioplasty implant and graft
CPT/HCPCS: 36415; 36573; 36600; 70450; 70553; 71045; 71275; 74177; 76700; 78452; 80047; 80048; 80053; 80074; 80076; 80307; 81001; 82140; 82306; 82330; 82533; 82550; 82607; 82803; 82962; 83036; 83540; 83550; 83605; 83690; 83735; 84100; 84132; 84439; 84443; 84478; 84481; 84484; 85025; 85610; 85730; 87040; 87070; 87081; 87147; 87205; 90686; 93005; 93017; 93970; 94002; 94003; 94640; 95819; 96374; 96375; 99292; C8929; G0378; J0461; J0696; J1265; J1644; J1650; J1815; J1953; J2405; J2543; J2704; J2785; J3370; J3475; J3480; J7070; J7620; P9047; Q9957; Q9967; 92522-GN; A9502; A9575; C1751; J1940; J2060; J2270; J3490; J7030; J7040; J7050